=== PATIENT | female | born 1955 | race Caucasian/White ===

== ENCOUNTER 2018-12-05 10:55 | Day surgery (SDC) | payer MEDICAID ==
[2018-12-05] MEDS ORDERED: MIDAZOLAM 2 MG/2 ML VIAL IVP PRN (11:22)
[2018-12-05] MEDS ORDERED: FLUMAZENIL 0.5 MG/5 ML MDV IVP PRN (11:22)
[2018-12-05] MEDS ORDERED: NALOXONE HCL 0.4 MG/ML INJ IVP PRN ×2 (11:22→14:53)
[2018-12-05] MEDS ORDERED: fentaNYL 100 MCG/2 ML INJ IVP PRN ×2 (11:22→14:53)
[2018-12-05] MEDS ORDERED: NS 1,000 ML IV SCH (11:30)
--- NOTE | 2018-12-05 11:58 | PDRADPRE ---
Radiology History & Physical Indication for procedure: pain, other (claudication) Home medications: Baclofen 20 mg PO TID 11/30/18 [Last Taken Unknown] FLUoxetine HCL 60 mg PO DAILY 11/30/18 [Last Taken Unknown] Furosemide 20 mg PO DAILY 11/30/18 [Last Taken Unknown] Gabapentin 400 mg PO TID 11/30/18 [Last Taken Unknown] Levemir Flextouch 25 units SC BID 11/30/18 [Last Taken Unknown] Levothyroxine 175 mcg PO DAILY 11/30/18 [Last Taken Unknown] Metformin HCl 1,000 mg PO BID 11/30/18 [Last Taken Unknown] Pantoprazole Sodium 40 mg PO BID 11/30/18 [Last Taken Unknown] Potassium Chloride 10 meq PO DAILY 11/30/18 [Last Taken Unknown] Propranolol HCl 10 mg PO BID 11/30/18 [Last Taken Unknown] Tizanidine HCl 4 mg PO DAILY 11/30/18 [Last Taken Unknown] Xifaxan 550 mg PO BID 11/30/18 [Last Taken Unknown] Allergies/Adverse Reactions: sulfamethoxazole [From Bactrim] Allergy (Severe, Verified 11/30/18 16:05) Swelling/neck,face,throat trimethoprim [From Bactrim] Allergy (Severe, Verified 11/30/18 16:05) Swelling/neck,face,throat latex Allergy (Intermediate, Verified 11/30/18 16:05) Rash Mental status: A&Ox3
--- NOTE | 2018-12-05 11:59 | PDPROPOC ---
Sedation Plan of Care ASA Classification: ASA 2 Mallampati Score: Class 2 Mallampati Reference Image:
[2018-12-05 12:20] LABS: PLATELET COUNT 231 10^3/uL (150-400)
[2018-12-05 12:26] VITALS: BP 128/73
[2018-12-05 12:29] LABS: INR 1.15 (0.83-1.16); PROTIME(PATIENT) 14.9 SEC (12.0-15.0)
--- NOTE | 2018-12-05 13:06 | PDANEPAE ---
ANE History of Present Illness Angiogram aortic ANE Past Medical History - Cardiovascular History Hx Hypertension: Yes Hx Arrhythmias: Yes Hx Chest Pain: No Hx Coronary Artery / Peripheral Vascular Disease: Yes Hx CHF / Valvular Disease: No Hx Palpitations: Yes Cardiovascular History Comment: PVCs, PVD - Pulmonary History Hx COPD: Yes Hx Asthma/Reactive Airway Disease: No Hx Recent Upper Respiratory Infection: Yes Hx Oxygen in Use at Home: Yes O2 in Use at Home (L/minute): 2L/NC HS Hx Sleep Apnea: No Sleep Apnea Screening Result - Last Documented: Positive Pulmonary History Comment: Upper respiratory infection 09/2018 - Neurologic History Hx Cerebrovascular Accident: No Hx Seizures: No Hx Dementia: No - Renal History Hx Renal Disorders: Yes Renal History Comment: Hypothyroid - Liver History Hx Hepatic Disorders: Yes Hepatic History Comment: Chirrosis- LEOS - Neurological & Psychiatric Hx Hx Neurological and Psychiatric Disorders: Yes Neurological / Psychiatric History Comment: Bilateral hands and feet neuropathy. 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 Reflux - Other Health History Other Health History: "Spots of blood behind my eyes". Bruises easily. No teeth; upper dentures only, but pt. "usually, I got without." - Chronic Pain History Chronic Pain: Yes - Surgical History Prior Surgeries: [place] loyd 2013. 2 C-sections in 1978 & 1990. Right Carpal tunnel release in hand and elbow 2013 ANE Review of Systems Review of Systems: - Exercise capacity METS (RN): 1 METS ANE Patient History - Allergies Allergies/Adverse Reactions: sulfamethoxazole [From Bactrim] Allergy (Severe, Verified 11/30/18 16:05) Swelling/neck,face,throat trimethoprim [From Bactrim] Allergy (Severe, Verified 11/30/18 16:05) Swelling/neck,face,throat latex Allergy (Intermediate, Verified 11/30/18 16:05) Rash - Home Medications Home Medications: Baclofen 20 mg PO TID 11/30/18 [Last Taken Unknown] FLUoxetine HCL 60 mg PO DAILY 11/30/18 [Last Taken Unknown] Furosemide 20 mg PO DAILY 11/30/18 [Last Taken Unknown] Gabapentin 400 mg PO TID 11/30/18 [Last Taken Unknown] Levemir Flextouch 25 units SC BID 11/30/18 [Last Taken 12/04/18] Levothyroxine 175 mcg PO DAILY 11/30/18 [Last Taken 12/04/18] Metformin HCl 1,000 mg PO BID 11/30/18 [Last Taken 12/04/18] Pantoprazole Sodium 40 mg PO BID 11/30/18 [Last Taken 12/04/18] Potassium Chloride 10 meq PO DAILY 11/30/18 [Last Taken 12/04/18] Propranolol HCl 10 mg PO BID 11/30/18 [Last Taken 12/05/18] Tizanidine HCl 4 mg PO DAILY 11/30/18 [Last Taken 12/05/18] Xifaxan 550 mg PO BID 11/30/18 [Last Taken 12/05/18] - NPO status NPO Status: no food or drink >8 hours - Smoking Hx Smoking Status: Former smoker - Family Anes Hx Family Hx Anesthesia Complications: None ANE Labs/Vital Signs - Labs Result Diagrams: 12/05/18 11:45 12/05/18 11:45 - Vital Signs Blood Pressure: 128/73 Heart Rate: 76 Respiratory Rate: 15 O2 Sat (%): 93 Height: 165.1 cm Weight: 78.018 kg ANE Physical Exam - Airway Neck exam: decreased ROM Mallampati Score: Class 1 Mouth exam: dentures - Pulmonary Pulmonary: no respiratory distress - Cardiovascular Cardiovascular: regular rate and rhythym, no murmur, rub, or gallop ANE Anesthesia Plan Anesthesia Plan: GA w LMA Total IV Anesthesia: Yes
[2018-12-05] MEDS ORDERED: fentaNYL 100 MCG/2 ML INJ ONE (13:13)
[2018-12-05] MEDS ORDERED: PROPOFOL/EMULSION 500 MG/50 ML BOTTLE IV ONE (13:14)
[2018-12-05] MEDS ORDERED: IOPAMIDOL (ISOVUE 370) 100 ML BTL IV ONE ×2 (14:13→14:21)
[2018-12-05] MEDS ORDERED: ONDANSETRON 4 MG/2 ML VIAL IVP PRN ×2 (14:29→14:53)
[2018-12-05] MEDS ORDERED: OXYCODONE/APAP 5/325 TAB PO PRN (14:29)
--- NOTE | 2018-12-05 14:31 | PDRADPN ---
Radiology Procedure Note Date of Procedure: 12/05/18 Radiologist: Radha Bueno Anesthesia: IV Sedation Pre-op Diagnosis: claudication Post-op Diagnosis: same Procedure: pelvic angiogram and runoff Finding(s): chronic SFA occlusions, no evidence of flow limiting stenosis in the iliac arteries Inf/Abcess present in the surg proc area at time of surgery?: No
[2018-12-05] MEDS ORDERED: HYDROCODONE/APAP 5/325 TAB PO PRN (14:53)
--- NOTE | 2018-12-06 17:41 | CPEKG ---
Test Reason : pre op Blood Pressure : / mmHG Vent. Rate : 074 BPM Atrial Rate : 073 BPM P-R Int : 143 ms QRS Dur : 103 ms QT Int : 400 ms P-R-T Axes : 045 050 043 degrees QTc Int : 444 ms Sinus rhythm Confirmed by Denisha Drew ([id number]) on 12/06/2018 5:40:45 PM Referred By: Colton Moyer Confirmed By:Denisha Drew
== END 2018-12-05 17:48 | disposition home or self-care (01) ==
LOC: FIMAGING 10:55
PROVIDERS: ATTEND Radiology Diagnostic Radiology
DX: I70.223 Atherosclerosis of native arteries of extremities with rest pain, bilateral legs (principal); E11.40 Type 2 diabetes mellitus with diabetic neuropathy, unspecified; E03.9 Hypothyroidism, unspecified; I10 Essential (primary) hypertension; E78.5 Hyperlipidemia, unspecified; G47.33 Obstructive sleep apnea (adult) (pediatric); Z79.84 Long term (current) use of oral hypoglycemic drugs; Z87.891 Personal history of nicotine dependence
CPT/HCPCS: 36247; 75630; 76937; 93005; C1769; C1894; J1644; J2704; J3010; Q9967

== ENCOUNTER 2019-01-15 11:53 | Inpatient (IN) | payer MEDICAID ==
--- NOTE | 2019-01-15 09:19 | PDHPUP ---
History & Physical Update H&P update statement: This history and physical update is based on an assessment of the patient which was completed after admission or registration (within 24 hours), but prior to the surgery/procedure. H&P update: H&P reviewed & patient examined, no change in patient's condition since H&P completed
--- NOTE | 2019-01-15 09:21 | POSTOPPROG ---
Post Op Note Date of Operation: 01/15/19 Surgeon: Colton Moyer Divisional Storekeeper: Tammie Calhoun PA-C Anesthesiologist: Dr. Bright Anesthesia: LMA, Spinal Pre-op Diagnosis: Arterial occlusive disease- right SFA Post-op Diagnosis: same Procedure: Right femoral-popliteal artery bypass with RGSV graft Inf/Abcess present in the surg proc area at time of surgery?: No EBL: 50-100 Complications: no immediate Specimen(s): none
[2019-01-15] MEDS ORDERED: LR 1,000 ML IV ONE (13:19)
[2019-01-15] MEDS ORDERED: BUPIVACAINE 0.5% 30 ML SDV ONE (13:50)
[2019-01-15] MEDS ORDERED: MIDAZOLAM 2 MG/2 ML VIAL IVP ONE (14:26)
[2019-01-15] MEDS ORDERED: fentaNYL 250 MCG/5 ML INJ ONE (14:53)
[2019-01-15] MEDS ORDERED: PROPOFOL/EMULSION 500 MG/50 ML BOTTLE IV ONE ×2 (14:54→17:28)
--- NOTE | 2019-01-15 15:04 | PDANEPAE ---
ANE History of Present Illness 63 year old female for fem bypass right side for pvd. History of tob, DM, HTN. ANE Past Medical History - Cardiovascular History Hx Hypertension: Yes Hx Arrhythmias: No Hx Chest Pain: No Hx Coronary Artery / Peripheral Vascular Disease: No Hx CHF / Valvular Disease: No Hx Palpitations: Yes Cardiovascular History Comment: SLIGHT MURMUR. PVCs, PVD - Pulmonary History Hx COPD: Yes Hx Asthma/Reactive Airway Disease: No Hx Recent Upper Respiratory Infection: No Hx Oxygen in Use at Home: Yes O2 in Use at Home (L/minute): 2 Hx Sleep Apnea: Yes Sleep Apnea Screening Result - Last Documented: Positive Pulmonary History Comment: Upper respiratory infection 09/2018. NOCTURNAL HYPOXEMIA. INTERMITTENT SOB HAS INHALER NOT YET USED - Neurologic History Hx Cerebrovascular Accident: No Hx Seizures: No Hx Dementia: No - Endocrine History Hx Diabetes: Yes Endocrine History Comment: HYPOTHYROID. IDDM SINCE 2004 - Renal History Hx Renal Disorders: No Renal History Comment: Hypothyroid - Liver History Hx Hepatic Disorders: Yes Hepatic History Comment: Chirrosis- LEOS - Neurological & Psychiatric Hx Hx Neurological and Psychiatric Disorders: Yes Neurological / Psychiatric History Comment: Bilateral hands and feet neuropathy. Depression - Cancer History Hx Cancer: No - Congenital Disorder History Hx Congenital Disorders: No - GI History Hx Gastrointestinal Disorders: Yes Gastrointestinal History Comment: Esophageal and Gastric varacies w/ clips. 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 Reflux - Other Health History Other Health History: CERVICAL AND LUMBAR STENOSIS. "Spots of blood behind my eyes". Bruises easily. No teeth; upper dentures only, but pt. "usually, I got without.". UPPER AND LOWER DENTURES. ANEMIA - Chronic Pain History Chronic Pain: Yes (TOMASZ LEG,NECK AND BACK) - Surgical History Prior Surgeries: [place] loyd 2013. 2 C-sections in 1978 & 1990. Right Carpal tunnel release in hand RT ULNAR NERVE TRANSPOSITION 2014 ANE Review of Systems Review of systems is: negative Review of Systems: - Exercise capacity METS (RN): 2 METS ANE Patient History - Allergies Allergies/Adverse Reactions: sulfamethoxazole [From Bactrim] Allergy (Severe, Verified 11/30/18 16:05) Swelling/neck,face,throat trimethoprim [From Bactrim] Allergy (Severe, Verified 11/30/18 16:05) Swelling/neck,face,throat latex Allergy (Intermediate, Verified 11/30/18 16:05) Rash - Home Medications Home Medications: Baclofen [Baclofen 10 mg (*)] 10 mg PO DAILY 11/30/18 [Last Taken 01/14/19 20:00 ] FLUoxetine [Prozac 20 MG (*)] 40 mg PO DAILY 11/30/18 [Last Taken 01/14/19 20:00 ] Furosemide [Lasix 20 MG (*)] 20 mg PO DAILY 11/30/18 [Last Taken 01/14/19 20:00] Gabapentin [Neurontin 400 MG (*)] 400 mg PO TID 11/30/18 [Last Taken 01/14/19 20 :00] Insulin Detemir [Levemir] 35 unit SQ BID 11/30/18 [Last Taken 01/15/19 07:00] Levothyroxine [Synthroid 175 mcg (*)] 175 mcg PO DAILY06 11/30/18 [Last Taken 08:00] Pantoprazole Sodium [Protonix 40mg (*)] 40 mg PO BID 11/30/18 [Last Taken ] Potassium Cl [Klor-Con 10 meq (RX)] 10 meq PO DAILY 11/30/18 [Last Taken ] Propranolol HCl [Inderal 10mg (*)] 10 mg PO BID 11/30/18 [Last Taken 01/14/19 20 :00] Rifaximin [Xifaxan] 550 mg PO BID 11/30/18 [Last Taken 01/13/19] metFORMIN HCL [Glucophage 1000 mg] 1,000 mg PO BIDMEAL 11/30/18 [Last Taken 03/01 08:00] tiZANidine HCL [Zanaflex 2MG (*)] 4 mg PO HS 11/30/18 [Last Taken 01/13/19] Albuterol [Proventil Inhaler HFA (*)] 1 - 2 puffs IH Q4H PRN 01/09/19 [Last Taken 01/15/19 07:00] Lactulose 15 ml PO TID PRN 01/09/19 [Last Taken 01/14/19 08:00] Spironolactone [Aldactone 50 MG (RX)] 50 mg PO DAILY 01/09/19 [Last Taken 08:00] - NPO status NPO Since - Liquids (Date): 01/14/19 NPO Since - Liquids (Time): 20:00 NPO Since - Solids (Date): 01/14/19 NPO Since - Solids (Time): 20:00 - Smoking Hx Smoking Status: Former smoker - Family Anes Hx Family Hx Anesthesia Complications: None ANE Labs/Vital Signs - Vital Signs Blood Pressure: 129/69 Heart Rate: 95 Respiratory Rate: 16 O2 Sat (%): 96 Height: 165.1 cm Weight: 77.111 kg ANE Physical Exam - Airway Neck exam: FROM Mallampati Score: Class 2 Mouth exam: dentures - Pulmonary Pulmonary: no respiratory distress - Cardiovascular Cardiovascular: regular rate and rhythym - ASA Status ASA Status: III ANE Anesthesia Plan Anesthesia Plan: spinal
[2019-01-15] MEDS ORDERED: ceFAZolin 2 GM/DEXTROSE 100 ML IV ONE (15:06)
[2019-01-15] MEDS ORDERED: IOTHALAMATE MEG (CONRAY) 50 ML VIAL IV ONE (16:44)
[2019-01-15] MEDS ORDERED: ONDANSETRON 4 MG/2 ML VIAL IVP PRN (19:09)
[2019-01-15] MEDS ORDERED: HYDROmorphONE/DILAUDID 1 MG/ML INJ IVP PRN ×2 (19:09→19:48)
[2019-01-15] MEDS ORDERED: ACETAMINOPHEN 325 MG TAB PO PRN (19:09)
[2019-01-15] MEDS ORDERED: TEMAZEPAM 15 MG CAP PO PRN (19:09)
[2019-01-15] MEDS ORDERED: ALBUTEROL 60 PUFFS/8 GM MDI IH PRN (19:11)
--- NOTE | 2019-01-15 19:12 | POSTANESTH ---
Post Anesthetic Evaluation Cardiovascular Status: Normal, Stable Respiratory Status: Normal, Stable Level of Consciousness/Mental Status: Mildly Sleepy, Arousable Pain Control: Adequate, Prn Tx Ordered Nausea/Vomiting Control: Adequate, Prn Tx Ordered Complications Possibly Related to Anesthesia: None Noted
[2019-01-15] MEDS ORDERED: fentaNYL 100 MCG/2 ML INJ ONE (19:38)
[2019-01-15] MEDS: fentaNYL 100 MCG/2 ML INJ IVP PRN ×2 (19:39→19:53)
[2019-01-15] MEDS ORDERED: NS 1,000 ML IV SCH (19:45)
[2019-01-15] MEDS ORDERED: METOPROLOL TARTRATE 25 MG TAB PO SCH (21:00)
[2019-01-15] MEDS ORDERED: LACTULOSE 20 GM/30 ML UDCUP PO PRN (21:45)
[2019-01-15] MEDS: INSULIN GLARGINE 100 UNITS/ML UNIT SC SCH (22:27)
[2019-01-15] MEDS: PROPRANOLOL HCL 10 MG TAB PO SCH (22:28)
[2019-01-15] MEDS: RIFAXIMIN 550 MG TAB PO SCH (22:28)
[2019-01-15] MEDS: ENOXAPARIN 40 MG/0.4 ML SYR SC SCH (22:28)
[2019-01-15] MEDS: PANTOPRAZOLE SODIUM 40 MG TAB PO SCH (22:28)
[2019-01-15] MEDS: GABAPENTIN 400 MG CAP PO SCH (22:28)
[2019-01-15] MEDS: ceFAZolin 2 GM/DEXTROSE 100 ML IV SCH (22:36)
[2019-01-15] MEDS: oxyCODONE IR 5 MG TAB PO PRN (22:46)
[2019-01-16] MEDS: LEVOTHYROXINE 175 MCG TAB PO SCH (05:32)
--- NOTE | 2019-01-16 06:28 | PDMN ---
Medical Necessity Medical necessity: [facility] IP only surgery; cpt 61145 Fem Pop Bypass
--- NOTE | 2019-01-16 06:32 | GOP ---
[f rep st] OPERATIVE REPORT DATE OF OPERATION: 01/15/2019 SURGEON: Colton Moyer MD CHIEF MEDICAL OFFICER: Linda Lebron. ANESTHESIA: Spinal with general. ANESTHESIOLOGIST: Laila Bright MD. PREOPERATIVE DIAGNOSIS: Bilateral superficial femoral artery occlusions with rest pain. POSTOPERATIVE DIAGNOSIS: Bilateral superficial femoral artery occlusions with rest pain. PROCEDURE PERFORMED: Right [id number] knee popliteal artery bypass with reverse saphenous vein graft, use of intraoperative Angiography. FINDINGS: See below. INDICATIONS: 63-year old female with a history of bilateral long-segment SFA occlusive disease with progressive right lower extremity rest pain and severe left leg claudication. She is undergoing a right [id number] knee popliteal artery bypass. Risks and benefits were explained of bleeding, infection, recurrent stenosis, need for additional future revascularization, nerve injury, as well as untoward cardiovascular risks. All questions were answered. She desires to proceed. learning support assistant is standard, necessary, and customary for the safe performance of this procedure. DESCRIPTION OF PROCEDURE: Spinal anesthesia was placed, followed by subsequent general anesthetic, given the patient's inability to lie still. Local anesthetic was infiltrated at all sites. The saphenous vein was mapped using intraoperative ultrasound from the groin to the level of the knee. A longitudinal incision was created across the upper thigh. The common femoral, superficial femoral, and profunda femoral arteries were all circumferentially encompassed with vessel loops. The saphenous vein was harvested from the groin to the knee through multiple small cutdown incisions. A longitudinal incision was created on the distal thigh. The sartorius muscle was retracted posteriorly and the adductor muscle retracted anterior, allowing for exposure into the popliteal fossa. The popliteal artery was away from its paired vena comitans as well as popliteal vein. The artery was generally soft with areas of wall thickening without calcific plaque. Intraoperative fluoroscopy was used for runoff views. This showed a widely patent popliteal artery from the injection site behind the knee with patent trifurcation and 2- vessel runoff to the foot. The vein was further harvested. A tunnel tract was created in subsartorial fashion anatomically, coursing along the superficial femoral artery. The vein was reversed. Individual bleeding points were controlled with suture ligature or hemoclips. The vein was tunneled. The distal anastomosis was created in an end-to-side fashion with running 6-0 Prolene suture. Excellent hemostasis was obtained immediately upon completion. The proximal anastomosis was placed along the distal aspect of the common femoral artery above the profunda femoris takeoff. The common femoral artery was generally soft at this location with soft atherosclerotic plaque throughout. This anastomosis was also created with a running 6-0 Prolene suture. The arteries were all fore-bled and back-bled. Flow was established through the profunda femoris artery prior to opening it through the graft. Completion arteriography was performed showing excellent graft patency with a widely patent distal anastomosis, with 1 focal area of irregularity, with a patent trifurcation of vessels and 2-vessel runoff to the foot. Satisfactory hemostasis was assured throughout. The wounds were all closed in layers with absorbable sutures followed by Dermabond. The patient was awakened in the operating room and taken to recovery with a palpable posterior tibial pulse. Copy requested to: Luis Lopez MD /[id number]/MODL MTDD
[2019-01-16] MEDS: ceFAZolin 2 GM/DEXTROSE 100 ML IV SCH (07:49)
[2019-01-16] MEDS: POTASSIUM CL 10 MEQ TAB PO SCH (07:57)
[2019-01-16] MEDS: GABAPENTIN 400 MG CAP PO SCH ×3 (07:57→21:13)
[2019-01-16] MEDS: BACLOFEN 10 MG TAB PO SCH ×2 (07:58→07:59)
[2019-01-16] MEDS: PROPRANOLOL HCL 10 MG TAB PO SCH ×2 (07:58→21:14)
[2019-01-16] MEDS: FUROSEMIDE 20 MG TAB PO SCH (07:58)
[2019-01-16] MEDS: FLUoxetine 20 MG CAP PO SCH (07:59)
[2019-01-16] MEDS: RIFAXIMIN 550 MG TAB PO SCH ×2 (07:59→21:13)
[2019-01-16] MEDS: PANTOPRAZOLE SODIUM 40 MG TAB PO SCH ×2 (08:00→21:15)
[2019-01-16] MEDS: SPIRONOLACTONE 50 MG TAB PO SCH (08:00)
[2019-01-16] MEDS: INSULIN GLARGINE 100 UNITS/ML UNIT SC SCH ×2 (08:00→21:14)
[2019-01-16] MEDS: ENOXAPARIN 40 MG/0.4 ML SYR SC SCH ×2 (08:11→21:15)
[2019-01-16] MEDS: oxyCODONE IR 5 MG TAB PO PRN ×3 (08:15→20:34)
--- NOTE | 2019-01-16 08:47 | SOAPPROG ---
SOANTHONY Progress Note Assessment/Plan: Assessment/Plan: S/p right femoral-popliteal artery bypass with RGSV graft. Doing very well. Graft patent- audible waveforms on doppler. Pulses hard to palpate this morning d/t systolic BPs in low 100s. Encouraged frequent ambulation today. PT to evaluate and treat. Will d/c aspirin with variceal history. Hopeful discharge to home tomorrow. Patient seen and evaluated with Dr. Moyer. 01/16/19 08:52 Subjective: S/p right femoral-popliteal artery bypass with reverse GSV graft POD #1. Mild incisional pain. Has been ambulating in room with no complaints. No wound concerns. No numbness/tingling. Explains she is unable to take aspirin because of LEOS related varices. Her last bleeding episode was about 2 years ago. She is due for routine EGD. Objective: Vital Signs Temp Pulse Resp BP Pulse Ox 36.6 C 77 20 113/59 L 96 01/16/19 07:29 01/16/19 07:29 01/16/19 07:29 01/16/19 07:29 01/16/19 07:29 01/15/19 01/16/19 01/17/19 05:59 05:59 05:59 Intake Total 2900 Output Total 20 Balance 2880 Physical Exam: Gen: A&O x3, AVSS, appears comfortable CV: regular rate, right DP/PT/popiteal pulses audible biphasic signals on doppler US Extremities: Right foot and leg pink and warm, minimal tenderness and edema, incisions clean without erythema or ecchymosis Neuro: nonfocal ICD10 Worksheet Patient Problems: Problems Problem Status Onset Arterial occlusive disease Acute - ICD10 Problem Qualifiers (1) Arterial occlusive disease
[2019-01-16] MEDS ORDERED: ASPIRIN 325 MG TAB PO SCH (09:00)
--- NOTE | 2019-01-16 09:11 | ASMTLACE ---
HERVE Acuity / Level of Answers: Yes Care: Did the patient have an inpatient admission? Comorbidities - select Answers: Chronic pulmonary disease all that apply Coronary Artery Disease Diabetes (uncontrolled or controlled) Opioid dependence / Chronic pain Peripheral vascular disease Other Notes: HTN; Hypothyroid # of Emergency department Answers: 0 visits in the last 6 months Social determinants Answers: Mental health diagnosis (anxiety, depression, pers onality disorders, etc.) Score: 17 Date Signed: 01/16/2019 09:11 AM Electronically Signed By:Erica Post
--- NOTE | 2019-01-16 10:36 | ASMTCMCOM ---
CM Note CM Note Notes: Pt is a 63 y/o female admitted for right femoral-popliteal artery bypass w/ rgsv graft. PT has been ordered and awaiting recommendations. Needs are TBD at this time. Referral made to [facility]. CM to follow. Plan: TBD Date Signed: 01/16/2019 10:36 AM Electronically Signed By:DARVIN Calloway
[2019-01-17] MEDS: oxyCODONE IR 5 MG TAB PO PRN ×3 (05:06→21:04)
[2019-01-17] MEDS: LEVOTHYROXINE 175 MCG TAB PO SCH (05:06)
[2019-01-17] MEDS: FLUoxetine 20 MG CAP PO SCH (08:01)
[2019-01-17] MEDS: RIFAXIMIN 550 MG TAB PO SCH ×2 (08:01→21:03)
[2019-01-17] MEDS: FUROSEMIDE 20 MG TAB PO SCH (08:02)
[2019-01-17] MEDS: POTASSIUM CL 10 MEQ TAB PO SCH (08:02)
[2019-01-17] MEDS: SPIRONOLACTONE 50 MG TAB PO SCH (08:02)
[2019-01-17] MEDS: GABAPENTIN 400 MG CAP PO SCH ×3 (08:04→21:04)
[2019-01-17] MEDS: PANTOPRAZOLE SODIUM 40 MG TAB PO SCH ×2 (08:04→21:04)
[2019-01-17] MEDS: PROPRANOLOL HCL 10 MG TAB PO SCH ×2 (08:04→21:03)
[2019-01-17] MEDS: ENOXAPARIN 40 MG/0.4 ML SYR SC SCH ×2 (08:05→21:05)
--- NOTE | 2019-01-17 08:48 | SOAPPROG ---
CHARBEL Progress Note Assessment/Plan: Assessment/Plan: S/p right femoral-popliteal artery bypass with RGSV graft. Doing very well. Graft patent- audible waveforms on doppler, right PT/DP pulses palpable this am. Encouraged frequent ambulation today and continuing PT exercises as she feels weak this morning. Hopeful discharge to home tomorrow. Patient seen and evaluated with Dr. Moyer. 01/16/19 08:52 01/17/19 08:53 Subjective: s/p fem-pop artery bypass graft POD #2. Continues to have foot and incisional pain- this is well managed with current pain med regimen. Has not ambulated much since last evening. Complains of feeling weak today. Saw PT yesterday with good progress. No other new concerns. Objective: Vital Signs Temp Pulse Resp BP Pulse Ox 36.7 C 78 16 91/62 L 98 01/17/19 08:00 01/17/19 08:00 01/17/19 08:00 01/17/19 08:00 01/17/19 08:00 01/16/19 01/17/19 01/18/19 05:59 05:59 05:59 Intake Total 2900 700 Output Total 20 400 Balance 2880 300 Physical Exam: Gen: A&O x3, AVSS, appears comfortable, slow with positional changes and transfers- using walker CV: regular rate, DP and PT pulses 1+ and biphasic signal on doppler Extremities: mild right foot edema, minimal right leg edema. Right leg and groin incisions clean and healing nicely- appropriate tenderness ICD10 Worksheet Patient Problems: Problems Problem Status Onset Arterial occlusive disease Acute - ICD10 Problem Qualifiers (1) Arterial occlusive disease
[2019-01-17] MEDS: INSULIN GLARGINE 100 UNITS/ML UNIT SC SCH ×2 (08:55→21:05)
[2019-01-17] MEDS: BACLOFEN 10 MG TAB PO SCH (11:17)
--- NOTE | 2019-01-17 15:39 | ASMTCMCOM ---
CM Note CM Note Notes: CM met w/ pt for dispo planning. PT is recommending HC. Pt is agreeable to HC services. Referral made to [facility]. [facility] is able to accept. CM confirmed pts address and phone number. CM to follow. Plan: [facility]; PT Date Signed: 01/17/2019 03:38 PM Electronically Signed By:DARVIN Calloway
[2019-01-17] MEDS: metFORMIN HCL 500 MG TAB PO SCH (18:18)
[2019-01-18] MEDS: LEVOTHYROXINE 175 MCG TAB PO SCH (04:48)
[2019-01-18 07:40] VITALS: BP 87/46
[2019-01-18] MEDS: metFORMIN HCL 500 MG TAB PO SCH (07:46)
[2019-01-18] MEDS: ENOXAPARIN 40 MG/0.4 ML SYR SC SCH (07:47)
--- NOTE | 2019-01-18 08:19 | PDIAF ---
- Diagnosis Diagnosis: Arterial occlusive disease Code Status: Full Code - Medication Management Discharge Medications: electronically signed and located in the Home Medication List. - Orders Services needed: Home Care, Registered Nurse (Assist with showering) Home Care Face to Face: I certify that this patient was under my care and that I had the required [id number] encounter meeting the encounter requirements on the discharge day. My findings support the fact that the patient is homebound as defined in Home Care Face to Face Continued: CMS Chapter 7 Medicare Benefits Manual 30.1.1 , The condition of the patient is such that there exists a normal inability to leave home and consequently, leaving home would require a considerable and taxing effort. Diet Recommendation: no restrictions on diet Diet Texture: Regular Texture Diet Additional Instructions: May shower. Order written for home nursing care to assist with showering/ bathing. Wash wounds with mild soap and water. Activity as tolerated- frequent ambulation. Use walker as needed. Prescriptions at home for narcotic pain medication. Encourage ibuprofen use for pain as needed. No diet restrictions. Follow up in office in 2 weeks. Call for fevers, chills, wound concerns, cold foot, pain not controlled with medication, or other questions. - Follow Up Care Current Providers and Referrals: DWIGHT QUINN [Primary Care Provider] - Colton Moyer MD [Medical Doctor] - follow up in 2 weeks
[2019-01-18] MEDS: INSULIN GLARGINE 100 UNITS/ML UNIT SC SCH (08:30)
[2019-01-18] MEDS: FLUoxetine 20 MG CAP PO SCH (08:31)
[2019-01-18] MEDS: GABAPENTIN 400 MG CAP PO SCH (08:31)
[2019-01-18] MEDS: PANTOPRAZOLE SODIUM 40 MG TAB PO SCH (08:31)
[2019-01-18] MEDS: BACLOFEN 10 MG TAB PO SCH (08:31)
[2019-01-18] MEDS: RIFAXIMIN 550 MG TAB PO SCH (08:31)
[2019-01-18] MEDS: PROPRANOLOL HCL 10 MG TAB PO SCH (08:47)
[2019-01-18] MEDS: SPIRONOLACTONE 50 MG TAB PO SCH (08:47)
[2019-01-18] MEDS: FUROSEMIDE 20 MG TAB PO SCH (08:47)
[2019-01-18] MEDS: POTASSIUM CL 10 MEQ TAB PO SCH (08:47)
--- NOTE | 2019-01-18 10:42 | ASMTDCNOTE ---
Case Management Discharge Discharge Order Complete? Answers: Yes Patient to Obtain Answers: via Family Medications Transportation Arranged Answers: Family/Friends Transport will Pick (Date 01/18/2019 12:00 AM & Time) Faxed Final Orders Answers: Yes Agency/Facility Transfer Answers: Yes Report Printed & Faxed to Receiving Agency Discharge Comments Notes: CM met with patient prior to discharge. She states she understands she will be discharging today with [facility], OT to visit tomorrow and RN on Monday. Her friend will be picking her up to transport her home. CM gave info for [facility] is PCP. CM available to follow if any additional CM needs arise. Date Signed: 01/18/2019 10:42 AM Electronically Signed By:Kelli Norris
--- NOTE | 2019-01-18 10:42 | GDS ---
[f rep st] DISCHARGE SUMMARY 63-year-old female who underwent a right femoral popliteal artery bypass with reverse great saphenous vein graft on January 15, 2019 for superficial femoral arterial occlusion. She had an uncomplicated postoperative course and otherwise uneventful hospital stay. She maintained systolic blood pressure in the 90s to low 100s. Her right popliteal, dorsalis pedis, and posterior tibial artery pulses were 2+ with systolic blood pressures over 100. These pulses were also audible with a biphasic signal on Doppler ultrasound. Her pain was well managed with her regular pain medications and oxycodone. She is to discharge to home today. She may shower. An order was written for home nursing care to assist with shower and hygiene. The patient states she has a prescription at home for narcotic medication if needed. Encouraged that she also use ibuprofen as needed for pain. Encouraged frequent ambulation. She may use assistive device if needed. She will follow up in the office in 2 weeks. She was advised to call with fevers, chills, wound concerns, cool foot, foot discoloration and other concerns. She may resume all home medications HOME MEDICATIONS: Lasix, Prozac, baclofen, Synthroid, lactulose, Neurontin, Glucophage, Inderal, Klor-Con, Protonix, Zanaflex, Aldactone, Xifaxan, Levemir and albuterol inhaler. /[id number]/MODL MTDD
== END 2019-01-18 12:28 | disposition home or self-care (01) | DRG 181 ==
LOC: F3N 12:45 → F2W 20:23 → F3E 20:35
PROVIDERS: ADMIT Surgery; ATTEND Surgery
PROC: 041K09L Bypass Right Femoral Artery to Popliteal Artery with Autologous Venous Tissue, Open Approach (ICD-10-PCS; principal; 2019-01-15 14:45)
DX: I77.1 Stricture of artery (principal); E11.9 Type 2 diabetes mellitus without complications; E03.9 Hypothyroidism, unspecified; I10 Essential (primary) hypertension; E78.5 Hyperlipidemia, unspecified; K21.9 Gastro-esophageal reflux disease without esophagitis; G47.30 Sleep apnea, unspecified; F17.210 Nicotine dependence, cigarettes, uncomplicated
CPT/HCPCS: 97116-GP; 97162-GP; 97530-GP; J0690; J1644; J1650; J1815; J2250; J2405; J2704; J3010; Q9961

== ENCOUNTER 2019-03-15 05:25 | Inpatient (IN) | payer MEDICAID ==
[2019-03-15] MEDS ORDERED: LR 1,000 ML IV ONE (05:35)
[2019-03-15] MEDS ORDERED: ceFAZolin 2 GM/DEXTROSE 100 ML IV ONE (05:35)
--- NOTE | 2019-03-15 06:55 | PDANEPAE ---
ANE History of Present Illness L femoral popliteal bypass ANE Past Medical History - Cardiovascular History Hx Hypertension: Yes Hx Arrhythmias: No Hx Chest Pain: No Hx Coronary Artery / Peripheral Vascular Disease: Yes Hx CHF / Valvular Disease: No Hx Palpitations: Yes Cardiovascular History Comment: SLIGHT MURMUR x 2,. PVCs, PVD, arterial occlusive disease - Pulmonary History Hx COPD: Yes Hx Asthma/Reactive Airway Disease: No Hx Recent Upper Respiratory Infection: No Hx Oxygen in Use at Home: Yes Hx Sleep Apnea: No Sleep Apnea Screening Result - Last Documented: Positive Pulmonary History Comment: Upper respiratory infection 09/2018. NOCTURNAL HYPOXEMIA. INTERMITTENT SOB HAS INHALER NOT YET USED - Neurologic History Hx Cerebrovascular Accident: No Hx Seizures: No Hx Dementia: No - Endocrine History Hx Diabetes: Yes Endocrine History Comment: HYPOTHYROID. IDDM SINCE 2004 - Renal History Hx Renal Disorders: No Renal History Comment: Hypothyroid - Liver History Hx Hepatic Disorders: Yes Hepatic History Comment: Chirrosis- LEOS - Neurological & Psychiatric Hx Hx Neurological and Psychiatric Disorders: Yes Neurological / Psychiatric History Comment: Bilateral hands and feet neuropathy. Depression - Cancer History Hx Cancer: No - Congenital Disorder History Hx Congenital Disorders: No - GI History Hx Gastrointestinal Disorders: Yes Gastrointestinal History Comment: Esophageal and Gastric varacies w/ clips. 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 Reflux - Other Health History Other Health History: CERVICAL AND LUMBAR STENOSIS. "Spots of blood behind my eyes". Bruises easily. No teeth; upper dentures only, but pt. "usually, I got without.". UPPER AND LOWER DENTURES. ANEMIA - Chronic Pain History Chronic Pain: Yes (TOMASZ LEG,NECK AND BACK) - Surgical History Prior Surgeries: right graft femoral popliteal bypass 3--. [place] loyd 2013. 2 C-sections in 1978 & 1990. Right Carpal tunnel release in hand RT ULNAR NERVE TRANSPOSITION 2014 ANE Review of Systems Review of systems is: negative Review of Systems: - Exercise capacity Exercise capacity: >=4 METS METS (RN): 3 METS ANE Patient History - Allergies Allergies/Adverse Reactions: sulfamethoxazole [From Bactrim] Allergy (Severe, Verified 03/06/19 15:57) Swelling/neck,face,throat trimethoprim [From Bactrim] Allergy (Severe, Verified 03/06/19 15:57) Swelling/neck,face,throat latex Allergy (Intermediate, Verified 03/06/19 15:57) Rash - Home Medications Home Medications: Baclofen [Baclofen 10 mg (*)] 10 mg PO TID 11/30/18 [Last Taken 03/15/19 03:30] FLUoxetine [Prozac 20 MG (*)] 60 mg PO DAILY 11/30/18 [Last Taken 03/15/19 03:30 ] Furosemide [Lasix 20 MG (*)] 20 mg PO DAILY 11/30/18 [Last Taken 03/14/19] Gabapentin [Neurontin 400 MG (*)] 400 mg PO TID 11/30/18 [Last Taken 03/15/19 03 :30] Insulin Detemir [Levemir] 40 unit SQ BID 11/30/18 [Last Taken 03/15/19 03:30 30 units] Levothyroxine [Synthroid 175 mcg (*)] 175 mcg PO DAILY06 11/30/18 [Last Taken 03:30] Pantoprazole Sodium [Protonix 40mg (*)] 40 mg PO BID 11/30/18 [Last Taken 03:30] Potassium Cl [Klor-Con 10 meq (RX)] 10 meq PO DAILY 11/30/18 [Last Taken ] Propranolol HCl [Inderal 10mg (*)] 10 mg PO BID 11/30/18 [Last Taken 03/15/19 03 :30] Rifaximin [Xifaxan] 550 mg PO BID 11/30/18 [Last Taken 03/14/19] metFORMIN HCL [Glucophage 1000 mg] 1,000 mg PO BIDMEAL 11/30/18 [Last Taken 12/01] tiZANidine HCL [Zanaflex 2MG (*)] 4 mg PO HS 11/30/18 [Last Taken 03/13/19] Albuterol [Proventil Inhaler HFA (*)] 1 - 2 puffs IH Q4H PRN 01/09/19 [Last Taken 01/15/19 07:00] Lactulose 15 ml PO TID PRN 01/09/19 [Last Taken 03/13/19] Spironolactone [Aldactone] 50 mg PO DAILY 01/09/19 [Last Taken 03/15/19 03:30] - NPO status NPO Status: no food or drink >8 hours NPO Since - Liquids (Date): 03/14/19 NPO Since - Liquids (Time): 22:00 NPO Since - Solids (Date): 03/14/19 NPO Since - Solids (Time): 19:00 - Anes Hx Anes Hx: no prior problems - Smoking Hx Smoking Status: Former smoker - Family Anes Hx Family Anes Hx: none Family Hx Anesthesia Complications: None ANE Labs/Vital Signs - Vital Signs Vital Signs: reviewed preoperatively; see RN documention for details Blood Pressure: 103/71 Heart Rate: 83 Respiratory Rate: 18 O2 Sat (%): 96 Height: 165.1 cm Weight: 76.657 kg ANE Physical Exam - Airway Neck exam: FROM Mallampati Score: Class 1 Mouth exam: dentures - Pulmonary Pulmonary: no respiratory distress - Cardiovascular Cardiovascular: regular rate and rhythym - ASA Status ASA Status: III ANE Anesthesia Plan Anesthesia Plan: general endotracheal anesthesia
[2019-03-15] MEDS ORDERED: BUPIVACAINE 0.5% 30 ML SDV ONE (07:00)
[2019-03-15] MEDS ORDERED: MIDAZOLAM 2 MG/2 ML VIAL IVP ONE ×2 (07:02→07:45)
[2019-03-15] MEDS ORDERED: ROCURONIUM 50 MG/5 ML VIAL ONE (07:11)
[2019-03-15] MEDS ORDERED: ONDANSETRON 4 MG/2 ML VIAL ONE (07:11)
[2019-03-15] MEDS ORDERED: DEXAMETHASONE 4 MG/ML VIAL ONE (07:11)
[2019-03-15] MEDS ORDERED: LIDOCAINE 2% 100 MG/5 ML SYR ONE (07:11)
[2019-03-15] MEDS ORDERED: fentaNYL 250 MCG/5 ML INJ ONE (07:11)
[2019-03-15] MEDS ORDERED: PROPOFOL 200 MG/20 ML VIAL ONE ×3 (07:11→10:52)
[2019-03-15] MEDS ORDERED: PHENYLEPHRINE HCL 100 MCG/ML SYR ONE (07:38)
[2019-03-15] MEDS ORDERED: IOTHALAMATE MEG (CONRAY) 50 ML VIAL IV ONE (07:57)
[2019-03-15] MEDS ORDERED: DIAZEPAM 10 MG/2 ML SYR IVP PRN (08:44)
[2019-03-15] MEDS ORDERED: DEXAMETHASONE 4 MG/ML VIAL IVP PRN (08:44)
[2019-03-15] MEDS ORDERED: oxyCODONE IR 5 MG TAB PO PRN (08:44)
[2019-03-15] MEDS ORDERED: ONDANSETRON 4 MG/2 ML VIAL IVP PRN ×2 (08:44→11:39)
[2019-03-15] MEDS ORDERED: NALOXONE HCL 0.4 MG/ML INJ IVP PRN (08:44)
[2019-03-15] MEDS ORDERED: fentaNYL 100 MCG/2 ML INJ IVP PRN (08:44)
[2019-03-15] MEDS ORDERED: HYDROmorphONE/DILAUDID 1 MG/ML INJ IVP PRN ×2 (08:44→11:39)
[2019-03-15] MEDS ORDERED: HYDROCODONE/APAP 5/325 TAB PO PRN ×2 (08:44→11:39)
[2019-03-15] MEDS ORDERED: ALBUTEROL 3 ML DEYVIAL IH PRN (08:44)
[2019-03-15] MEDS ORDERED: MEPERIDINE 25 MG/0.5 ML AMP IVP PRN (08:44)
[2019-03-15] MEDS ORDERED: LABETALOL HCL 5 MG/ML 20 ML MDV IVP PRN (08:44)
[2019-03-15] MEDS ORDERED: PROMETHAZINE HCL 25 MG/ML INJ IVP PRN (08:44)
--- NOTE | 2019-03-15 08:48 | POSTANESTH ---
Post Anesthetic Evaluation Cardiovascular Status: Similar to Pre-Op Cond Respiratory Status: Similar to Pre-op Cond. Level of Consciousness/Mental Status: Can Participate in Eval, Mildly Sleepy, Arousable Pain Control: Adequate, Prn Tx Ordered Nausea/Vomiting Control: Adequate, Prn Tx Ordered Complications Possibly Related to Anesthesia: None Noted
[2019-03-15] MEDS ORDERED: HEPARIN 10,000 UNIT/10 ML MDV (1,000 UNIT/ML) ONE (08:56)
[2019-03-15] MEDS ORDERED: ACETAMINOPHEN 325 MG TAB PO PRN (11:39)
[2019-03-15] MEDS ORDERED: TEMAZEPAM 15 MG CAP PO PRN (11:39)
--- NOTE | 2019-03-15 11:39 | POSTOPPROG ---
Post Op Note Date of Operation: 03/15/19 Surgeon: Colton Moyer [employer] Technician: Tammie Calhoun PA-C Anesthesiologist: Kael Garcia Anesthesia: GET(General Endotracheal) Pre-op Diagnosis: left SFA arterial occlusive disease Post-op Diagnosis: same Procedure: Left leg femoral-popliteal arterial bypass with reverse GSV Findings: left SFA and arterial calcification Inf/Abcess present in the surg proc area at time of surgery?: No EBL: 100-500 Complications: no immediate
[2019-03-15] MEDS ORDERED: LACTULOSE 20 GM/30 ML UDCUP PO PRN (11:43)
[2019-03-15] MEDS ORDERED: ALBUTEROL 60 PUFFS/8 GM MDI IH PRN (11:43)
--- NOTE | 2019-03-15 12:13 | GOP ---
[f rep st] OPERATIVE REPORT DATE OF OPERATION: 03/15/2019 SURGEON: Colton Moyer MD LABORER LIVESTOCK: Tammie Calhoun PA-C ANESTHESIA: General. ANESTHESIOLOGIST: Dr. Garcia PREOPERATIVE DIAGNOSIS: Left superficial femoral artery occlusive disease. POSTOPERATIVE DIAGNOSIS: Left superficial femoral artery occlusive disease. PROCEDURE PERFORMED: 1. Left femoral to above-knee popliteal artery bypass with reverse saphenous vein graft. 2. Left femoral artery thromboendarterectomy. 3. Intraoperative ultrasound. FINDINGS: See below. 3 vessel runoff to ankle. INDICATIONS: 63-year-old female with symptomatic bilateral SFA level occlusive disease. She underwent a prior right [id number] artery bypass. She has recovered nicely. She is undergoing a contralateral leg repair today. Risks and benefits were explained including bleeding, infection, graft failure, need for additional revascularization, risk of limb loss, nerve injury, as well as untoward cardiovascular events. All questions were answered. She desires to proceed. A critical care physician assistant is standard and necessary and customary for the safe performance of this procedure. DESCRIPTION OF PROCEDURE: After general anesthesia was induced, the left thigh great saphenous vein was mapped out using ultrasonography. A longitudinal groin incision was created over the common femoral artery. A portion of the distal inguinal ligament was partially divided. The artery including the common , superficial, and profunda femoris branches were all circumferentially encompassed with vessel loops, as was the circumflex iliac branch. The great saphenous vein was identified, as was the saphenofemoral junction. The proximal aspects of the vein were dissected away from the surrounding fibrofatty tissue with all branch points being divided between hemoclips. A longitudinal distal thigh incision was created. The sartorious muscle was retracted posteriorly. The popliteal fossa was entered. The artery and vein were circumferentially dissected away from the surrounding fibrofatty tissue. The artery was encompassed with vessel loops. It was notably soft without significant calcific plaque at this location. Multiple additional counter incisions were made along the great saphenous vein preoperatively mapped harvest sites. Vein was dissected away with the branch points being divided between hemoclips. The vein was transected both proximally and distally. The vein was reversed. Occasional bleeding points were controlled with additional hemoclips. One small area of branch point avulsion was repaired with a running 6-0 Prolene suture. The vein was marked for orientation with an indelible marker. A tunnel was passed in anatomic position in subsartorial fashion. The heparin bolus was administered. The distal anastomosis was initially completed. This was performed in an end-to-side fashion with a running 6-0 Prolene suture. There was excellent size match between the vein and artery. Excellent hemostasis was assured. The distal clamps were all released with the placement of a bulldog clamp on the graft alone. The proximal anastomosis was subsequently created in end-to-side fashion, as well with a running 5-0 Prolene suture. The artery was all forward bled and back bled before reestablishing flow through the graft towards the foot. A pulse was immediately palpable within the dorsalis pedis and posterior tibial arteries. Satisfactory hemostasis was assured throughout. Completion arteriography was performed showing at the suture repair site, a small narrowing within the distal anastomotic vein harvest site without flow limitation. There was a widely patent anastomosis with 3-vessel runoff to the ankle and no kinking of the graft within the thigh. Satisfactory hemostasis was assured. The wounds were all closed in layers with absorbable sutures followed by Dermabond. The patient was taken to the recovery room extubated uneventfully. Copy requested to: Luis Lopez /[id number]/MODL MTDD
--- NOTE | 2019-03-15 13:26 | PDMN ---
Medical Necessity Medical necessity: [facility] IP only surgery; cpt 87386 Fem Pop Bypass
[2019-03-15] MEDS: GABAPENTIN 400 MG CAP PO SCH ×2 (15:07→21:29)
[2019-03-15] MEDS: BACLOFEN 10 MG TAB PO SCH ×2 (15:07→21:28)
--- NOTE | 2019-03-15 15:11 | ASMTLACE ---
HERVE Acuity / Level of Answers: Yes Care: Did the patient have an inpatient admission? Comorbidities - select Answers: Chronic pulmonary disease all that apply Coronary Artery Disease Diabetes (uncontrolled or controlled) Opioid dependence / Chronic pain Peripheral vascular disease Other Notes: HTN; Hypothyroid # of Emergency department Answers: 0 visits in the last 6 months Social determinants Answers: Mental health diagnosis (anxiety, depression, pers onality disorders, etc.) Score: 17 Date Signed: 03/15/2019 03:10 PM Electronically Signed By:Erica Post
--- NOTE | 2019-03-15 15:26 | SOAPPROG ---
SOAP Progress Note Assessment/Plan: Assessment:postop check. sleepy. pain controlled. palp 2+ PT/DP. doing well. cont present mgmnt. add lovenox. Plan: 03/15/19 15:24 Objective: Vital Signs Temp Pulse Resp BP Pulse Ox 36.7 C 77 19 166/85 H 93 03/15/19 13:31 03/15/19 13:31 03/15/19 13:31 03/15/19 13:31 03/15/19 13:31 03/14/19 03/15/19 03/16/19 05:59 05:59 05:59 Intake Total 2500 Output Total 270 Balance 2230 ICD10 Worksheet Patient Problems: Problems Problem Status Onset Arterial occlusive disease Acute
--- NOTE | 2019-03-15 15:49 | ASMTCMCOM ---
CM Note CM Note Notes: Discussed with RN, pt was admitted for scheduled surgery of left femoral artery occlusion. She had right one done a month ago. No therapies ordered, anticipate she will dc home w/support of when medically stable. CM available should her needs change. DC Plan: Independent Date Signed: 03/15/2019 03:47 PM Electronically Signed By:Sammie Gutierrez RN
[2019-03-15] MEDS: metFORMIN HCL 500 MG TAB PO SCH (15:58)
[2019-03-15] MEDS: KETOROLAC 15 MG/1 ML SDV IVP SCH (16:59)
[2019-03-15] MEDS: ENOXAPARIN 40 MG/0.4 ML SYR SC SCH (17:04)
[2019-03-15] MEDS ORDERED: tiZANidine HCL 2 MG TAB PO SCH (21:00)
[2019-03-15] MEDS: PANTOPRAZOLE SODIUM 40 MG TAB PO SCH (21:28)
[2019-03-15] MEDS: INSULIN GLARGINE 100 UNITS/ML UNIT SC SCH (21:28)
[2019-03-15] MEDS: RIFAXIMIN 550 MG TAB PO SCH (21:29)
[2019-03-15] MEDS: PROPRANOLOL HCL 10 MG TAB PO SCH (22:12)
[2019-03-16] MEDS: KETOROLAC 15 MG/1 ML SDV IVP SCH ×5 (05:01→23:50)
[2019-03-16] MEDS: LEVOTHYROXINE 175 MCG TAB PO SCH (05:01)
[2019-03-16] MEDS: INSULIN GLARGINE 100 UNITS/ML UNIT SC SCH ×2 (09:49→22:00)
[2019-03-16] MEDS: GABAPENTIN 400 MG CAP PO SCH ×3 (09:52→22:01)
[2019-03-16] MEDS: RIFAXIMIN 550 MG TAB PO SCH ×2 (09:52→22:01)
[2019-03-16] MEDS: ASPIRIN 81 MG CHEWABLE TAB PO SCH ×2 (09:52→13:16)
[2019-03-16] MEDS: PANTOPRAZOLE SODIUM 40 MG TAB PO SCH ×2 (09:52→22:01)
[2019-03-16] MEDS: BACLOFEN 10 MG TAB PO SCH ×3 (09:53→22:01)
[2019-03-16] MEDS: SPIRONOLACTONE 50 MG TAB PO SCH (09:53)
[2019-03-16] MEDS: metFORMIN HCL 500 MG TAB PO SCH ×2 (09:53→18:32)
[2019-03-16] MEDS: FLUoxetine 20 MG CAP PO SCH (09:53)
[2019-03-16] MEDS ORDERED: D50W 25 GM/50 ML SYR IVP PRN (09:57)
--- NOTE | 2019-03-16 10:04 | SOAPPROG ---
SOAP Progress Note Assessment/Plan: Assessment/Plan: POD #1 s/p left femoral to popliteal arterial bypass with reverse GSV graft. Graft patent. Doing very well. Denies pain- currently well managed with home meds only. Encouraged frequent ambulation using walker today. Discussed possible reprofusion swelling, though this will unlikely match swelling she experienced on her right leg s/p arterial bypass. Will check CBC and BMP tomorrow am. Hopeful d/c in 24-48 hrs if she continues to do well. 03/16/19 10:04 Subjective: No overnight concerns. Continues to feel sleepy, but more alert today. Denies pain. Minimal foot swelling. Has not ambulated much. Tolerating food and fluids well. Objective: Vital Signs Temp Pulse Resp BP Pulse Ox 36.7 C 74 16 100/46 L 93 03/16/19 08:30 03/16/19 09:10 03/16/19 09:10 03/16/19 09:24 03/16/19 09:10 03/15/19 03/16/19 03/17/19 05:59 05:59 05:59 Intake Total 2880 Output Total 1220 Balance 1660 Physical Exam: Gen: A&O x3, appears comfortable, in bed, afebrile Extremities: Left foot and leg warm, mild left foot edema, palpable DP/PT- faint with systolic BP around 100, audible doppler waveform distal anastomosis and DP/PT. Left leg incisions clean without erythema, minimal tenderness. Appropriate left thigh ecchymosis ICD10 Worksheet Patient Problems: Problems Problem Status Onset Arterial occlusive disease Acute
[2019-03-16] MEDS: ENOXAPARIN 40 MG/0.4 ML SYR SC SCH (12:28)
[2019-03-16] MEDS: PROPRANOLOL HCL 10 MG TAB PO SCH ×2 (12:31→22:01)
[2019-03-16] MEDS: INSULIN LISPRO 100 UNIT/ML SC SCH ×2 (14:29→18:25)
[2019-03-16] MEDS: FUROSEMIDE 20 MG TAB PO SCH (14:35)
[2019-03-16] MEDS: POTASSIUM CL 10 MEQ TAB PO SCH (14:35)
[2019-03-17] MEDS: KETOROLAC 15 MG/1 ML SDV IVP SCH (05:53)
[2019-03-17] MEDS: LEVOTHYROXINE 175 MCG TAB PO SCH (05:54)
[2019-03-17] MEDS: INSULIN LISPRO 100 UNIT/ML SC SCH ×3 (09:30→18:40)
[2019-03-17] MEDS: RIFAXIMIN 550 MG TAB PO SCH ×2 (09:42→21:40)
[2019-03-17] MEDS: PANTOPRAZOLE SODIUM 40 MG TAB PO SCH ×2 (09:42→21:41)
[2019-03-17] MEDS: FLUoxetine 20 MG CAP PO SCH (09:42)
[2019-03-17] MEDS ORDERED: KETOROLAC 30 MG/1 ML SDV IVP PRN (09:42)
[2019-03-17] MEDS: SPIRONOLACTONE 50 MG TAB PO SCH (09:42)
[2019-03-17] MEDS: GABAPENTIN 400 MG CAP PO SCH ×3 (09:42→21:41)
[2019-03-17] MEDS: metFORMIN HCL 500 MG TAB PO SCH ×2 (09:42→18:40)
[2019-03-17] MEDS: BACLOFEN 10 MG TAB PO SCH ×3 (09:42→21:42)
[2019-03-17] MEDS ORDERED: oxyCODONE IR 5 MG TAB PO PRN (09:43)
[2019-03-17] MEDS: ENOXAPARIN 40 MG/0.4 ML SYR SC SCH (09:43)
[2019-03-17] MEDS: ASPIRIN 81 MG CHEWABLE TAB PO SCH (09:43)
[2019-03-17] MEDS ORDERED: POLYETHYLENE GLYCOL 3350 17 GM PKT PO PRN (09:46)
--- NOTE | 2019-03-17 09:53 | SOAPPROG ---
SOAP Progress Note Assessment/Plan: Assessment/Plan: POD #2 s/p left femoral to popliteal arterial bypass with reverse GSV graft. Graft patent. Doing very well. Minimal left groin pain- Bonnie d/c, replaced with oxycodone IR. Aspirin d/c per patient request, history of esophageal varices. Encouraged continued frequent ambulation using walker, PT to evaluate and treat. Discussed possible reprofusion swelling, though this will unlikely match swelling she experienced on her right leg s/p arterial bypass. CBC and BMP overall unremarkable- Hgb 8.2, her baseline is around 10. Anticipate discharge to home tomorrow. 03/16/19 10:04 03/17/19 09:53 Subjective: Moderate left groin pain overnight- relieved with dilaudid. Ambulated in lorenzo with no concern. Minimal foot/leg pain with activity. Patient refuses aspirin with history of esophageal varices. Objective: Vital Signs Temp Pulse Resp BP Pulse Ox 36.4 C 77 14 93/36 L 93 03/17/19 07:46 03/17/19 07:46 03/17/19 07:46 03/17/19 07:46 03/17/19 07:46 Laboratory Results 03/17/19 03:36 03/17/19 03:36 03/16/19 03/17/19 03/18/19 05:59 05:59 05:59 Intake Total 2880 650 Output Total 1220 1375 Balance 1660 -725 Physical Exam: Gen: A&O x3, appears comfortable, afebrile Ext: Left foot and leg warm, 2+ PT/DP bilateral, mild left foot edema, mild appropriate left groin incisional tenderness, all incisions healing well without erythema. Audible doppler waveform left popliteal fossa ICD10 Worksheet Patient Problems: Problems Problem Status Onset Arterial occlusive disease Acute
[2019-03-17] MEDS: INSULIN GLARGINE 100 UNITS/ML UNIT SC SCH ×2 (10:59→21:40)
[2019-03-17] MEDS ORDERED: BISACODYL 10 MG SUPP PR PRN (11:44)
[2019-03-17] MEDS ORDERED: MAGNESIUM HYDROXIDE 30 ML UDCUP PO PRN (11:44)
[2019-03-17] MEDS: FUROSEMIDE 20 MG TAB PO SCH (15:24)
[2019-03-17] MEDS: POTASSIUM CL 10 MEQ TAB PO SCH (15:25)
[2019-03-17] MEDS: PROPRANOLOL HCL 10 MG TAB PO SCH ×2 (15:27→21:42)
[2019-03-17] MEDS: SENNOSIDES/DOCUSATE SODIUM TAB PO SCH (21:41)
[2019-03-18] MEDS: LEVOTHYROXINE 175 MCG TAB PO SCH (06:06)
[2019-03-18 07:29] VITALS: BP 101/52
--- NOTE | 2019-03-18 07:32 | SOAPPROG ---
SOAP Progress Note Assessment/Plan: Assessment:good night. min pain. no further left leg claudication with ambulation. avss. comfortable. incis clean. 2+ DP/PT. pod #3 s/p left fem- pop with rev SVG. doing great, graft patent. home today. Plan: 03/15/19 15:24 03/18/19 07:31 Objective: Vital Signs Temp Pulse Resp BP Pulse Ox 36.4 C 68 16 101/52 L 94 03/18/19 07:28 03/18/19 07:28 03/18/19 07:28 03/18/19 07:28 03/18/19 07:28 Laboratory Results 03/17/19 03:36 03/17/19 03:36 03/17/19 03/18/19 03/19/19 05:59 05:59 05:59 Intake Total 650 1070 Output Total 0380 6090 Balance -615 -7110 ICD10 Worksheet Patient Problems: Problems Problem Status Onset Arterial occlusive disease Acute
[2019-03-18] MEDS: FUROSEMIDE 20 MG TAB PO SCH (07:49)
[2019-03-18] MEDS: metFORMIN HCL 500 MG TAB PO SCH (07:49)
[2019-03-18] MEDS: BACLOFEN 10 MG TAB PO SCH (07:49)
[2019-03-18] MEDS: SPIRONOLACTONE 50 MG TAB PO SCH (07:49)
[2019-03-18] MEDS: RIFAXIMIN 550 MG TAB PO SCH (07:50)
[2019-03-18] MEDS: FLUoxetine 20 MG CAP PO SCH (07:50)
[2019-03-18] MEDS: PROPRANOLOL HCL 10 MG TAB PO SCH (07:51)
[2019-03-18] MEDS: GABAPENTIN 400 MG CAP PO SCH (07:51)
[2019-03-18] MEDS: PANTOPRAZOLE SODIUM 40 MG TAB PO SCH (07:51)
[2019-03-18] MEDS: POTASSIUM CL 10 MEQ TAB PO SCH (07:51)
[2019-03-18] MEDS: SENNOSIDES/DOCUSATE SODIUM TAB PO SCH (07:52)
[2019-03-18] MEDS: INSULIN LISPRO 100 UNIT/ML SC SCH (07:53)
[2019-03-18] MEDS: ENOXAPARIN 40 MG/0.4 ML SYR SC SCH (07:53)
[2019-03-18] MEDS: INSULIN GLARGINE 100 UNITS/ML UNIT SC SCH (07:55)
--- NOTE | 2019-03-18 08:11 | GDS ---
[f rep st] DISCHARGE SUMMARY REASON FOR ADMISSION: Left superficial femoral artery occlusion. 63-year-old female with a history of bilateral SFA level occlusive disease. She underwent a prior uncomplicated right femoral-popliteal bypass with reverse saphenous vein graft. She was admitted on this hospitalization for a left leg femoral to above knee popliteal artery bypass with reverse saphenous vein graft. She had a benign postoperative course. She was discharged home on postoperative day #3 in excellent condition, ambulating without further claudication symptoms with a bounding pulse at her dorsalis pedis and posterior tibial arteries. She will be seen in followup by Dr. Moyer in 2 weeks. She was to resume all pre-hospital medications including Xifaxan, Zanaflex, Inderal, K- Kaylene, Protonix, Glucophage, Synthroid, Levemir, Neurontin, Lasix, Prozac, baclofen, albuterol, Aldactone, and lactulose as needed. She was given prescriptions for oxycodone for pain. No activity restrictions were provided. She knows to call for fevers, chills, graft failure, or any other lower extremity concerns. Copy requested to: DWIGHT QUINN /[id number]/MODL MTDD
== END 2019-03-18 10:07 | disposition home or self-care (01) | DRG 181 ==
LOC: F2W 05:25
PROVIDERS: ADMIT Surgery; ATTEND Surgery
DX: I77.1 Stricture of artery (principal); E11.9 Type 2 diabetes mellitus without complications; E03.9 Hypothyroidism, unspecified; I10 Essential (primary) hypertension; E78.5 Hyperlipidemia, unspecified; K21.9 Gastro-esophageal reflux disease without esophagitis; G47.30 Sleep apnea, unspecified
CPT/HCPCS: 97161-GP; J0690; J1100; J1170; J1644; J1650; J1815; J1885; J2001; J2250; J2370; J2405; J2704; J3010; Q9961